=== PATIENT | female | born 1970 | race Two or more races ===

== ENCOUNTER 2025-02-25 22:27 | Emergency (ER) | payer MEDICAID, SELFPAY ==
[2025-02-25 22:28] VITALS: BMI 30.1
--- NOTE | 2025-02-25 22:45 | XR_ITS ---
Examination: PA chest single view TECHNIQUE: Upright PA chest single view Standing time: February 25, 2025 1105 hours INDICATIONS: Chest pain beginning 3 hours ago. FINDINGS: Accentuation of basilar bronchovascular markings No lobar pneumonia Normal heart size No lobar pneumonia Left axillary and right axillary surgical clips Moderate osteopenia IMPRESSION: Basilar bronchitis pattern
--- NOTE | 2025-02-25 22:46 | PD.EDRME ---
Rapid Medical Screening Exam E Arrival date/time: 02/25/25 22:27 CC: Mid back pain that radiates to the chest, HPI onset 3 hours ago denies shortness of breath difficulty breathing has a history of diabetes hypertension hypothyroidism. No medication taken since onset. No prior history of similar events. Currently pain is on a 3-4 on 10 scale. Denies vomiting difficulty breathing fever or chills. Chief Complaint: Chest Pain Time Seen by Provider: 02/25/25 22:39
[2025-02-25 22:47] VITALS: BP 159/93; PULSE 70; RESP 17; TEMP 36.8; O2SAT 97
--- NOTE | 2025-02-25 22:48 | PD.EDADULT ---
ED General RME/HPI General Chief complaint: Chest Pain Stated complaint: BACK PAIN RADIATES TO CHEST Time Seen by Provider: 02/25/25 22:39 Arrival date/time: 02/25/25 22:27 CC: Mid back pain that radiates to the chest onset 3 hours ago, no OTC medicines taken. Patient denies fever chills chest pain shortness of breath or difficulty breathing. No other complaints at this time. Patient has a history of diabetes hypertension hyperlipidemia and hypothyroidism. RME / HPI RME / HPI narrative: 02/25/25 22:27 CC: Mid back pain that radiates to the chest, HPI onset 3 hours ago denies shortness of breath difficulty breathing has a history of diabetes hypertension hypothyroidism. No medication taken since onset. No prior history of similar events. Currently pain is on a 3-4 on 10 scale. Denies vomiting difficulty breathing fever or chills. Related Data Home Medications ?Medication ?Instructions ?Recorded ?Confirmed lisinopril 20 mg tablet 20 mg PO DAILY 01/29/20 01/15/21 docusate sodium 100 mg capsule 100 mg PO BID 01/15/21 01/15/21 (DOK) gabapentin 100 mg capsule 100 mg PO TID 01/15/21 01/15/21 levothyroxine 112 mcg tablet 112 mcg PO QDAY 01/15/21 01/15/21 (Euthyrox) loratadine 10 mg tablet 10 mg PO QDAY 01/15/21 01/15/21 omeprazole 20 mg capsule,delayed 20 mg PO QDAY 01/15/21 01/15/21 release tramadol 50 mg tablet 50 mg PO Q6H PRN Pain 01/15/21 01/15/21 Previous Rx's ?Medication ?Instructions ?Recorded azithromycin 500 mg tablet See Rx Instructions PO .COMPLEX #6 03/29/22 tabs ibuprofen 800 mg tablet 800 mg PO TID PRN pain #30 tabs 03/29/22 ibuprofen 400 mg tablet 400 mg PO Q8H #10 tabs 02/25/25 Allergies Allergy/AdvReac Type Severity Reaction Status Date / Time cephalexin Allergy Severe Hives Verified 03/29/22 14:07 codeine Allergy Intermediate RASH AND Verified 03/29/22 14:04 ITCHING hydrocodone AdvReac Intermediate DIFF. Verified 03/29/22 14:04 BREATHING Review of Systems Review of Systems Narrative Review of Systems: GEN: No fever, no chills, no weight loss EYES: No discharge, no visual changes, no pain HEENT: No ear pain, no congestion, no sore throat PULM: No shortness of breath, no cough, no congestion CV: No chest pain, no dyspnea on exertion, no palpitations GI: No nausea, no vomiting, no diarrhea, no pain, no constipation : No frequency, no urgency, no dysuria MUSC/SKEL: No joint pain, + back pain SKIN: No rash PSYCH: No hallucinations, no depression HEME/LYMPH: No easy bleeding or bruising tendencies NEURO: No weakness, no headache Past Medical History Past Medical History NEUROLOGIC: Negative Neurological Disorders or Seizures CARDIAC: Positive Cardiac Disorders, Heart Murmur, Hypercholesterolemia, Hypertension and Varicose Veins; Negative Myocardial Infarction, Coronary Artery Disease, Atherosclerotic Heart Disease, Congestive Heart Failure or Deep Vein Thrombosis RESPIRATORY: Positive Bronchitis, Pneumonia and Tuberculosis; Negative Chronic Obstructive Pulmonary Disease (COPD) or Pulmonary Embolism GASTROINTESTINAL: Positive Gastrointestinal Disorders and Gastroesophageal Reflux Disease GENITOURINARY: Negative Genitourinary Disorders or Renal Disease REPRODUCTIVE: Positive Breast Cancer (left) and Previous Pregnancies MUSCULOSKELETAL: Positive Musculoskeletal Disorders ENDOCRINE: Positive Endocrine Disorders, Hypoglycemia and Hypothyroidism; Negative Diabetes Mellitus Type 1 or Diabetes Mellitus Type 2 HEMATOLOGIC: Positive Blood Disorders and Anemia PSYCHO/SOCIAL: Positive Anxiety OTHER HISTORY: Positive Hospitalization, Radiation Therapy, Cancer and Breast Cancer (left); Negative Autoimmune Disease, Shingles, Falls, Blood Transfusions, Blood Transfusion Reaction, Anesthesia Reactions, Chemotherapy or MRSA Family History FAMILY HISTORY: Positive Family Respiratory Disorders, Family Cancer and Family Surgery; Negative Family Neurologic Problems, Family Psychiatric Problems, Family Cardiac Disorders, Family Gastrointestinal Problems or Family Anesthesia Reaction Surgical History SURGICAL: Positive Thyroidectomy and Mastectomy (BILATERAL MASTECTOMY, LEFT BREAST W/LYMPH NODES); Negative Cardiac Surgery Social History SMOKING STATUS: Never smoker SUBSTANCE USE: does not use ED Exam Narrative Physical exam: [General: Not in any acute distress Head normocephalic HEENT: Within acceptable limits Neck is supple nontender Chest equal chest rise nontender to palpation Respiratory: Clear to auscultation no wheezes crackles or rubs CV: Rate rhythm is regular no murmurs rubs or clicks Abdomen is distended secondary to body habitus soft nontender no masses positive bowel sounds all 4 quadrants Back: Mild mid thoracic bilateral paraspinal tenderness with palpation. Skin: Intact no petechiae rash induration ulceration or crepitus Extremities: Moving all extremity against resistance cap refill less than 2 seconds neurosensory intact Neuro: Awake alert oriented x3 Glascow coma 15 no focal deficits] Course Quality Measures none Orders Category Date Time Status EKG (ED ONLY) *Do not use* NOW Care 02/25/25 22:34 Completed EKG (ED Only) Stat Exams 02/25/25 22:33 Ordered XR chest 1V Stat Exams 02/25/25 22:45 Completed Ketorolac Inj [Toradol Inj] Med 02/25/25 22:45 Discontinued 15 mg IM X1 ONE Vital Signs Vital signs: Vital Signs Temperature 98.3 F 02/25/25 22:47 Pulse Rate 70 02/25/25 22:47 Respiratory Rate 17 02/25/25 22:47 Blood Pressure 159/93 H 02/25/25 22:47 Pulse Oximetry (%) 97 02/25/25 22:47 Oxygen Delivery Method Room Air 02/25/25 22:47 Discharge Plan Plan Patient Disposition: HOME (Self Care) Prescriptions/Referrals Prescriptions/Med Rec: New ibuprofen 400 mg tablet 400 mg PO Q8H Qty: 10 0RF No Action lisinopril 20 mg Tablet 20 mg PO DAILY tramadol 50 mg Tablet 50 mg PO Q6H PRN (Reason: Pain) docusate sodium [DOK] 100 mg Capsule 100 mg PO BID omeprazole 20 mg Capsule,Delayed Release(Dr/Ec) 20 mg PO QDAY gabapentin 100 mg Capsule 100 mg PO TID loratadine 10 mg Tablet 10 mg PO QDAY levothyroxine [Euthyrox] 112 mcg Tablet 112 mcg PO QDAY ibuprofen 800 mg tablet 800 mg PO TID PRN (Reason: pain) Qty: 30 0RF azithromycin 500 mg tablet See Rx Instructions .ROUTE .COMPLEX Qty: 6 0RF Rx Instructions: take 500 mg today (day 1), then 250 mg for 4 days (days 2-5) Problem List Clinical Impression: Back pain Patient/Caregiver Discharge Instructions Discharge Activity: activity as tolerated Education Materials: ED Back Care Tips Print Language: Indonesian Stand Alone Forms: [employer] Award Info., Work/School Release, Patient Portal Info Letter PA/ART HISTORY PROFESSOR Supervising Physician PA/ART HISTORY PROFESSOR Supervising Physician: Kareem MORALES Clinical Information Provided by: patient Medical Records reviewed [facility] Medication Administration(s) Medication Administration History Discontinued Medications Ketorolac Tromethamine (Ketorolac Inj 60 Mg/2 Ml Vial) 15 mg IM X1 ONE Stop: 02/25/25 22:46 Last Admin: 02/25/25 23:01 Dose: 15 mg Documented By: JOHN
[2025-02-25] MEDS: KETOROLAC INJ 60 MG/2 ML VIAL 15 MG IM (23:01)
--- NOTE | 2025-02-25 23:21 | EDNOTE_ITS ---
Emergency Room Addendum <Lucy Phillips - Last Filed: 02/26/25 00:55> Addendum Narrative: I took over the care from previous shift physician at 2300 on 02/25/2025. See previous notes for complete H & P and ED course. I reviewed all diagnostic test results. My interpretation of the EKG is My interpretation of the chest x-ray is basilar bronchitis pattern. My review of the CT report is Blood tests and urine tests Diagnoses include: Treatment here included Not yet done: I discussed the case with our hospitalist. About the presentation and exam and diagnostics and treatments here. And need of further care in the hospital. Will accept the patient. Not yet done: Based on my best medical judgment, made decision no further evaluation or treatment indicated at this time. Patient understands and agrees to the discharge instructions customized and printed, see below. Baudilio Knutson MD <Baudilio Knutson MD - Last Filed: 02/26/25 01:01> Addendum Narrative: I took over the care from previous shift physician (Kareem Cuellar NP) at 2300 on 02/25/2025. See previous notes for complete H & P and ED course. I was asked to review the final chest x-ray report. When I looked for the patient to evaluate the patient then reviewed the chest x- ray report then discussed disposition, I was told the patient was discharged by Britt Cam. Baudilio Knutson MD
== END 2025-02-26 00:57 | disposition home or self-care (01) ==
LOC: SERX 02-26 00:33
PROVIDERS: Emergency Provider Emergency Medicine; PCP Family Medicine
DX: M54.6 Pain in thoracic spine (principal); R07.9 Chest pain, unspecified; I45.10 Unspecified right bundle-branch block; E78.00 Pure hypercholesterolemia, unspecified; I10 Essential (primary) hypertension
CPT/HCPCS: 71045; 93005; 96372; 99283; J1885